=== PATIENT | female | born 1985 | race African-American/Black ===

== ENCOUNTER 2017-06-01 10:33 | Observation (INO) | payer OTHER ==
[~2017-06-01] VITALS: Ht 160 cm; Wt 56.6 kg
[2017-06-01 11:48] LABS: HEMATOCRIT 35.7 % (36.0-46.0); HEMOGLOBIN 12.2 G/DL (11.9-15.5); MCH 30.4 PG (29.0-34.0); MCHC 34.2 G/DL (30.0-36.0); PLATELET COUNT 369 K/uL (156-360); RBC DIS.WIDTH-CV 12.9 % (11.8-14.6); RBC DIS.WIDTH-SD 42.1 % (39-53); RED BLOOD COUNT 4.01 M/uL (3.80-5.20); WHITE BLOOD COUNT 6.1 K/uL (4.1-10.2)
[2017-06-01 12:00] LABS: CHLORIDE 106 mEq/L (99-109); POTASSIUM 4.2 mEq/L (3.7-5.4); SODIUM 140 mEq/L (136-147)
[2017-06-01 12:01] LABS: GLUCOSE 66 mg/dL (70-99)
[2017-06-01 12:05] LABS: CREATININE 0.8 mg/dL (0.6-1.3); GFR ESTIMATE (CALCULATED) > 59 mL/min/
[2017-06-01 12:06] LABS: UREA NITROGEN (BUN) 16 mg/dL (9-23)
[2017-06-01 12:14] LABS: QUANTITATIVE HCG < 4.0 MIU/ML
[2017-06-01 13:41] LABS: APPEARANCE CLEAR ((CLEAR)); BILIRUBIN NEGATIVE; BLOOD LARGE; COLOR COLORLESS ((YELLOW)); GLUCOSE (STRIP) NEGATIVE; KETONES NEGATIVE; LEUKOCYTES NEGATIVE; NITRITE NEGATIVE; PROTEIN (STRIP) NEGATIVE; SPECIFIC GRAVITY 1.009 (1.000-1.030); UROBILINOGEN 0.2 MG/DL (0.2-1.0)
[2017-06-01 13:44] LABS: BACTERIA NONE SEEN /HPF; EPITHELIAL CELLS 1+ /HPF; MUCUS NONE SEEN /LPF; RED BLOOD CELLS 0-5 /HPF (0-5); WHITE BLOOD CELLS 0-5 /HPF (0-5)
[2017-06-01 15:00] LABS: TROP-I INTERPRETATION NEGATIVE; TROPONIN-I < 0.01 ng/mL (0.0-0.30)
[2017-06-01 16:11] VITALS: BP 104/66
[2017-06-01 19:00] VITALS: BP 114/66
[2017-06-01 20:19] LABS: TROP-I INTERPRETATION NEGATIVE; TROPONIN-I < 0.01 ng/mL (0.0-0.30)
[2017-06-02 02:17] LABS: TROP-I INTERPRETATION NEGATIVE; TROPONIN-I < 0.01 ng/mL (0.0-0.30)
[2017-06-02 07:19] LABS: CHLORIDE 110 mEq/L (99-109); SODIUM 140 mEq/L (136-147)
[2017-06-02 07:24] LABS: CREATININE 0.8 mg/dL (0.6-1.3); GFR ESTIMATE (CALCULATED) > 59 mL/min/
[2017-06-02 07:25] LABS: UREA NITROGEN (BUN) 14 mg/dL (9-23)
[2017-06-02 07:31] LABS: GLUCOSE 92 mg/dL (70-99)
[2017-06-02 07:38] VITALS: BP 107/55
[2017-06-02 09:51] VITALS: BP 110/59
== END 2017-06-02 10:21 | disposition home or self-care (01) ==
LOC: EME 10:33 → EDOF 13:34 → ENRESERV 13:35 → 5WEST 16:02
PROVIDERS: Internal Medicine; Nurse Practitioner Family
DX: R55 Syncope and collapse (principal)
CPT/HCPCS: 71046; 80048; 81003; 84484; 84702; 85027; 87502; 93005; G0378; J7030; J7120